=== PATIENT | male | born 1965 | race Caucasian/White ===

== ENCOUNTER 2023-05-20 13:39 | Emergency (ER) | payer BC, SELFPAY ==
[2023-05-20 13:41] VITALS: BP 123/74; PULSE 77; RESP 24; TEMP 36.2; O2SAT 100; BMI 26.3
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
[2023-05-20] MEDS: Ibuprofen 600 MG Tablet PO (14:00)
[2023-05-20 14:44] VITALS: BP 131/82; PULSE 80; RESP 18
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
[2023-05-20] MEDS: morphine 8 MG/ML Syringe IV (14:54)
[2023-05-20] MEDS: Ondansetron 4 MG/2 ML Vial IV (14:54)
[2023-05-20 16:03] VITALS: BP 125/90; RESP 16; O2SAT 97
== END 2023-05-20 17:45 | disposition home or self-care (01) ==
PROVIDERS: Emergency Provider Emergency Medicine; Visit Provider Emergency Medicine
DX: S32.019A Unspecified fracture of first lumbar vertebra, initial encounter for closed fracture (principal); S00.81XA Abrasion of other part of head, initial encounter; V47.0XXA Car driver injured in collision with fixed or stationary object in nontraffic accident, initial encounter; Y92.410 Unspecified street and highway as the place of occurrence of the external cause
CPT/HCPCS: 72100; 72131; 74177; 96374; 96375; 99285; J7030; Q9967; J2405